=== PATIENT | female | born 1995 | race Caucasian/White ===

== ENCOUNTER 2017-01-23 09:42 | Inpatient (IN) | payer BC ==
[~2017-01-23] VITALS: Ht 154.9 cm; Wt 79.1 kg
[~2017-01-23 09:42] MED LIST: ACET500C5 PO; PREN1TAB49 PO
[2017-01-23 09:58] VITALS: BP 117/69; PULSE 102; RESP 18; Ht 154.9 cm; Wt 79.1 kg
--- NOTE | 2017-01-23 10:16 | TRIAGE ---
OB Triage Datetime Report Generated by CPN: 01/23/2017 10:16 Datetime: 01/23/2017 10:02 Vaginal Exam Dilatation (cms): 6.0 Effacement (%): 80 Station: -2 Exam By: [email or web address] Vaginal Bleeding: None Cervix, Consistency: Soft Cervix, Position: Midposition Presentation 'A': Cephalic Datetime: 01/23/2017 09:55 Assessment Type: Triage Maternal Assessment Level of Consciousness: Fully Conscious DTR's/Clonus: DTRs 2+; No Clonus Headache: Denies Blurred Vision: No Respiratory Effort: Unlabored; Regular Rhythm; Equal Expansion Breath Sounds, Left: Clear and Equal Breath Sounds, Right: Clear and Equal Nausea/Vomiting: Denies RUQ Epigastric Pain: Denies Lower Extremities Edema: None Degree: None Upper Extremities Edema: None Degree: None Facial Edema: None Fall Risk Assessment History of Falling: (0) No Secondary Diagnosis: (0) No Ambulatory Aid: (0) Bedrest/Nurse Assist IV Therapy: (0) No Gait: (0) Normal/Bedrest/Immobile Mental Status: (0) Oriented to Own Ability Fall Score: 0 Fall Risk Score Definition: No Risk: No action required Datetime: 01/23/2017 09:53 Time of Arrival: 01/23/2017 09:39 EGA: 40.3 Arrived By: Ambulatory Arrived From: Home Chief Complaint: C/O UC'S Movement: Present Contractions: Irregular Rupture of Membranes: Denies Vaginal Bleeding: None Vaginal Discharge: Present Recent Sexual Intercouse: Denies Abdominal Trauma: Not Applicable Patient Complaints: Contractions; Cramping; Back Pain Time Provider Notified: 01/23/2017 10:10 Provider Notified: SHARMIN Initial Plan: EFM, SVE Datetime: 01/23/2017 09:52 Labor Evaluation Monitor Mode: External Monitor Mode: External US Datetime: 01/09/2017 01:16 Membrane Status: Intact Datetime: 01/08/2017 23:30 Stage of : OB Triage Datetime: 01/08/2017 23:28 EGA: 38.2 Datetime: 01/08/2017 23:22 Heart Rate FHR Baseline Rate: 135 Monitor Mode: External US FHR Baseline Changes: No Baseline Change Variability: Moderate 6-25 bpm Accelerations: 15X15 Decelerations: None Category: Category I Datetime: 01/08/2017 23:18 Stage of : OB Triage Time of Arrival: 01/08/2017 22:40 Arrived By: Wheelchair Arrived From: Home Chief Complaint: VOIDING A LOT WANTS TO KNOW IF SHE IS LEAKING Movement: Present Rupture of Membranes: Unsure Vaginal Bleeding: None Recent Sexual Intercouse: Denies Time Provider Notified: 01/09/2017 00:43 Provider Notified: DR ALBERT Initial Plan: CALL MD EFM Maternal Assessment Level of Consciousness: Fully Conscious DTR's/Clonus: DTRs 2+; No Clonus Headache: Denies Blurred Vision: No Respiratory Effort: Unlabored; Regular Rhythm; Equal Expansion Breath Sounds, Left: Clear and Equal Breath Sounds, Right: Clear and Equal Nausea/Vomiting: Denies RUQ Epigastric Pain: Denies Lower Extremities Edema: None Degree: None Upper Extremities Edema: None Degree: None Facial Edema: None Temperature Route: Oral Fall Risk Assessment History of Falling: (0) No Secondary Diagnosis: (0) No Ambulatory Aid: (0) Bedrest/Nurse Assist IV Therapy: (0) No Gait: (0) Normal/Bedrest/Immobile Mental Status: (0) Oriented to Own Ability Fall Score: 0 Fall Risk Score Definition: No Risk: No action required Pain Assessment Pain Scale: 0 Datetime: 01/08/2017 23:17 Stage of : OB Triage Datetime: 01/08/2017 23:16 Stage of : OB Triage
--- NOTE | 2017-01-23 10:32 | RADRPT ---
PROCEDURE: US OB biophysical profile. CLINICAL INDICATION: decreased movements, PTL TECHNIQUE: Multiple sonographic images of the pelvis were obtained. The images were reviewed on a PACS workstation. COMPARISON: No prior studies are available for comparison. FINDINGS: There is a single viable intrauterine gestation. Cardiac activity is present with 132 beats per min alatna. There is a vertex presentation. The placenta is anterior. There is no evidence of placental abruption. There is a normal amount of amniotic fluid with an HAWA = 10.7 cm. Biophysical profile: movement 2/2 tone 2/2. breathing 2/2 HAWA 2/2 Total 01/15 RPTAT: AA . IMPRESSION: Normal biophysical profile. . .Jersey Mark MD, Date Time Electronically viewed and signed by .Jersey Mark MD, MD on 01/23/2017 10:31 .S/
--- NOTE | 2017-01-23 10:40 | RADRPT ---
PROCEDURE: US OB. CLINICAL INDICATION: labor, contractions TECHNIQUE: Multiple sonographic images of the pelvis were obtained. Transabdominal imaging only w as performed. The images were reviewed on a PACS workstation. COMPARISON: No prior studies are available for comparison. FINDINGS: Single intrauterine gestation. Cephalic presentation. heart rate is 146 bpm. Measurements were made in order to determine age. The results are as follows: BPD = 8.53 cm HC = 31.85 cm AC = 31.95 cm FL = 7.36 cm Gestational age is 36 weeks 0 days and ANSHUL is 02/20/2017 by ultrasound criteria. EFW = 2868 g +/- 430 g (10 %). The placenta is anterior. There is no evidence for an abruption or placenta previa. IMPRESSION: 1. Single live intrauterine gestation of approximately 36 weeks 0 days by ultrasound criteria. RPTAT: EE .Milton Elaine MD, MD Date Time Electronically viewed and signed by .Milton Elaine MD, on 01/23/2017 10:39 .R/
[2017-01-23] MEDS ORDERED: LACTATED RINGER'S 1,000 ML IV PRN (10:50)
[2017-01-23] MEDS ORDERED: LACTATED RINGER'S 1,000 ML IV SCH (10:50)
[2017-01-23] MEDS ORDERED: LIDOCAINE 1% (MPF) 30 ML INJ INJ PRN (11:00)
[2017-01-23] MEDS ORDERED: MISOPROSTOL 200 MCG TAB PR PRN (11:00)
[2017-01-23] MEDS ORDERED: CARBOPROST 250 MCG INJ IM PRN (11:00)
[2017-01-23] MEDS ORDERED: AMPICILLIN 2 GM/NS (PMX) 100 ML IV ONE (11:00)
[2017-01-23] MEDS ORDERED: IBUPROFEN 600 MG TAB PO PRN (11:00)
[2017-01-23] MEDS ORDERED: OXYTOCIN 30 UNITS/LR 500 ML IV SCH ×2 (11:00)
[2017-01-23] MEDS ORDERED: OXYTOCIN 30 UNITS/LR 500 ML IV PRN (11:00)
[2017-01-23] MEDS ORDERED: METHYLERGONOVINE 0.2 MG INJ IM PRN (11:00)
[2017-01-23 11:13] LABS: BARBITURATES Negative (NEGATIVE); BENZODIAZEPINES Negative (NEGATIVE); CANNABINOIDS Negative (NEGATIVE); COCAINE Negative (NEGATIVE); OPIATES Negative (NEGATIVE)
[2017-01-23 12:05] LABS: BASOPHILS % 0.3 % (0.0-2.0); EOSINOPHILS # 0.1 10^3/ul (0.0-0.5); EOSINOPHILS % 0.5 % (0.0-7.0); HEMATOCRIT 33.7 % (37.0-47.0); HEMOGLOBIN 11.5 g/dl (12.0-16.0); LYMPHOCYTES # 1.3 10^3/ul (0.8-2.9); LYMPHOCYTES % 11.6 % (15.0-51.0); MEAN CORPUSCULAR HEMOGLOBIN 29.5 pg (29.0-33.0); MEAN CORPUSCULAR HGB CONC 34.1 g/dl (32.0-37.0); MEAN CORPUSCULAR VOLUME 86.4 fl (82.0-101.0); MEAN PLATELET VOLUME 11.7 fl (7.4-10.4); MONOCYTE # 0.7 10^3/ul (0.3-0.9); MONOCYTES % 5.9 % (0.0-11.0); NEUTROPHILS % 81.4 % (39.0-77.0); PLATELET COUNT 278 10^3/UL (140-415); RED CELL DISTRIBUTION WIDTH 14.5 % (11.5-14.5); WHITE BLOOD COUNT 11.3 10^3/ul (4.8-10.8)
[2017-01-23] MEDS ORDERED: LACTATED RINGER'S 1,000 ML IV ONE (12:06)
[2017-01-23] MEDS ORDERED: ONDANSETRON 4 MG INJ ONE (12:09)
[2017-01-23] MEDS ORDERED: CITRIC ACID/NA CITRATE 30 ML CUP ONE ×2 (12:09→12:10)
[2017-01-23 12:18] LABS: INR 0.92; PARTIAL THROMBOPLASTIN TIME 25.4 Sec (25.0-35.0); PROTIME 12.4 Sec (12.2-14.2)
[2017-01-23] MEDS ORDERED: CITRIC ACID/NA CITRATE 30 ML CUP PO ONE (12:30)
[2017-01-23] MEDS ORDERED: morphine 4 MG/ML VIAL IV PRN (12:30)
[2017-01-23] MEDS ORDERED: NALBUPHINE HCL (10 MG/1 ML) INJ IV PRN (12:30)
[2017-01-23] MEDS ORDERED: TRIMETHOBENZAMIDE 100 MG/ML VIAL IM PRN (12:30)
[2017-01-23] MEDS ORDERED: ONDANSETRON 4 MG INJ IV ONE (12:30)
[2017-01-23] MEDS ORDERED: KETOROLAC 30 MG INJ IV PRN (12:30)
[2017-01-23] MEDS ORDERED: FENTAnyl 2MCG/ML-ROPIV 0.2% 100 ML BAG EPI SCH (12:30)
[2017-01-23] MEDS ORDERED: NALOXONE (0.4 MG/ML) INJ IV PRN (12:30)
[2017-01-23] MEDS ORDERED: morphine 2 MG INJ IV PRN (12:30)
[2017-01-23] MEDS ORDERED: DIPHENHYDRAMINE 50 MG INJ IV PRN (12:30)
[2017-01-23] MEDS ORDERED: ONDANSETRON 4 MG INJ IV PRN ×2 (12:30→18:00)
[2017-01-23] MEDS: BUTORPHANOL 2 MG INJ IV PRN ×2 (12:45→13:24)
--- NOTE | 2017-01-23 13:21 | LDN ---
Date/Time of Note Date/Time of Note DATE: 01/23/17 TIME: 13:14 Delivery Summary Normal spontaneous vaginal delivery of a baby from OA position compound presentation shoulders delivered without any difficulty rest of the baby's body followed cord clamp after stopped pulsing placenta spontaneous expulsion inspected complete peritoneal vaginal inspection no laceration estimated blood loss 250 mL Weeks of Gestation 40 weeks and 3 days Placenta Delivered: Spontaneously Meconium: none Episiotomy: No Laceration repair: None Anesthesia type: None Estimated blood loss: 250 Sponge & Needle done & correct: Yes All needle counts correct: Yes Any foreign bodies felt in the: No Problems: Infant Delivery Information Sex Infant Sex: male Apgars 1 Minute: 9 5 Minute: 9 Suctioning Nose & mouth suctioned at palma: Yes Delee suction performed: No Umbilical Cord Umbilical cord with: 3 Vessels Cord presentations: no nuchal cord Cord Blood was obtained: Yes HUSSAIN FINNEY MD Jan 23, 2017 13:21
--- NOTE | 2017-01-23 13:25 | HP ---
Date/Time of Note Date/Time of Note DATE: 01/23/17 TIME: 13:21 OB - History Hx of Present Free Text/Dictation 21 years old female G3 P 1 SAB 1 admitted to the [facility] in active labor pelvic examination on admission cervix 7 cm dilated 100 % effaced vertex at -1 station intact member. Chief Complaint: Labor contractions and Estimated Due Date: Jan 20, 2017 : 3 Para: 1 Spontaneous : 1 Care: Limited Care Ultrasounds: Normal mid trimester US Obstetrical Complications: None Medical Complications: None Past Family/Social History * Past Medical, Surgical, Family and Obstetric Histories reviewed from chart. Rubella: immune RPR/VDRL: Negative GBS Status: Negative HBsAG: Negative OB Admission Exam Vital Signs Vital Signs Vital Signs Date Time Temp Pulse Resp B/P Pulse Ox O2 Delivery O2 Flow Rate FiO2 01/23/17 09:58 98.3 102 18 117/69 97 Room Air Physical Exam HEENT: WNL Heart: Rhythm Normal Lungs: Clear, Equal Abdomen: WNL Extremities: Normal Reflexes: Normal Cervical Dilatation: 7cm Effacement: 100% Station: -1 Membranes: Intact Amniotic Fluid: Clear Heart Rate: 130's Accelerations: Accelerations Present Decelerations: No Decelerations Varibility: Moderate Contractions on Admission: < 5 Minutes Apart Intensity: Firm Last 72 hours Lab Results CBC & BMP 01/23/17 10:15 HUSSAIN FINNEY MD Jan 23, 2017 13:25
[2017-01-23] MEDS ORDERED: AMPICILLIN 1 GM/NS (PMX) 50 ML IV SCH (14:30)
[2017-01-23] MEDS ORDERED: HYDROCODONE/APAP (5/325) TAB PO PRN ×2 (18:00)
[2017-01-23] MEDS ORDERED: ACETAMINOPHEN 325 MG TAB PO PRN (18:00)
[2017-01-23] MEDS ORDERED: LANOLIN 7 GM TUBE TOP PRN (18:00)
[2017-01-23] MEDS ORDERED: DIBUCAINE 1% 30 GM OINT PR PRN (18:00)
[2017-01-23] MEDS ORDERED: OXYCODONE/ASPIRIN (4.88/325) TAB PO PRN ×2 (18:00)
[2017-01-23 18:05] VITALS: BP 108/58; PULSE 96; RESP 18
[2017-01-23] MEDS: OXYTOCIN 30 UNITS/LR 500 ML IV SCH ×2 (18:06→22:29)
[2017-01-23] MEDS: WITCH HAZEL/GLYCERIN PAD PR PRN ×2 (18:27→21:55)
[2017-01-23] MEDS: BENZOCAINE 20% 56 ML SPRAY TOP PRN ×2 (18:27→21:55)
[2017-01-23 20:00] VITALS: BP 127/68; PULSE 100; RESP 18
[2017-01-23] MEDS: SENNA/DOCUSATE NA (8.6MG/50MG) TAB PO SCH (20:59)
[2017-01-23 23:45] VITALS: BP 114/56; PULSE 95; RESP 18
[2017-01-23] MEDS: IBUPROFEN 600 MG TAB PO SCH (23:53)
[2017-01-24 04:15] VITALS: BP 111/58; PULSE 18; RESP 18
[2017-01-24] MEDS: IBUPROFEN 600 MG TAB PO SCH ×4 (05:38→23:49)
[2017-01-24 08:14] VITALS: BP 105/55; PULSE 77; RESP 18
[2017-01-24] MEDS: SENNA/DOCUSATE NA (8.6MG/50MG) TAB PO SCH ×2 (08:41→21:14)
[2017-01-24 09:06] LABS: BASOPHIL # 0.1 10^3/ul (0.0-0.1); BASOPHILS % 0.5 % (0.0-2.0); EOSINOPHILS # 0.1 10^3/ul (0.0-0.5); EOSINOPHILS % 0.7 % (0.0-7.0); HEMATOCRIT 30.6 % (37.0-47.0); LYMPHOCYTES # 1.7 10^3/ul (0.8-2.9); LYMPHOCYTES % 16.4 % (15.0-51.0); MEAN CORPUSCULAR HEMOGLOBIN 28.7 pg (29.0-33.0); MEAN CORPUSCULAR HGB CONC 32.7 g/dl (32.0-37.0); MEAN CORPUSCULAR VOLUME 87.9 fl (82.0-101.0); MEAN PLATELET VOLUME 11.5 fl (7.4-10.4); MONOCYTE # 0.7 10^3/ul (0.3-0.9); PLATELET COUNT 232 10^3/UL (140-415); RED BLOOD COUNT 3.48 10^6/ul (4.20-5.40); WHITE BLOOD COUNT 10.2 10^3/ul (4.8-10.8)
--- NOTE | 2017-01-24 09:59 | PN ---
Date/Time of Note Date/Time of Note DATE: 01/24/17 TIME: 09:57 OB Subjective Subjective Subjective January 24, 2017 day hospital visit Doing Well Afebrile Ambulatory Chest Clear Breasts are soft , Nipples are intact Abdomen is soft Fundus is firm Moderate amount of lochia Incision is clean ,No evidence of infection No calf tenderness No ankle edema Laboratory Tests Test 01/23/17 10:00 01/23/17 10:15 01/24/17 08:40 Urine Opiates Screen Negative Urine Barbiturates Negative Urine Amphetamines Screen Negative Urine Benzodiazepines Screen Negative Urine Cocaine Screen Negative Urine Cannabinoids Negative White Blood Count 11.310^3/ul 10.210^3/ul Red Blood Count 3.9010^6/ul 3.4810^6/ul Hemoglobin 11.5g/dl 10.0g/dl Hematocrit 33.7% 30.6% Mean Corpuscular Volume 86.4fl 87.9fl Mean Corpuscular Hemoglobin 29.5pg 28.7pg Mean Corpuscular Hemoglobin Concent 34.1g/dl 32.7g/dl Red Cell Distribution Width 14.5% 15.0% Platelet Count 35350^3/UL 32983^3/UL Mean Platelet Volume 11.7fl 11.5fl Neutrophils % 81.4% 75.0% Lymphocytes % 11.6% 16.4% Monocytes % 5.9% 7.0% Eosinophils % 0.5% 0.7% Basophils % 0.3% 0.5% Nucleated Red Blood Cells % 0.0/100WBC 0.0/100WBC Neutrophils # (Manual) 9.210^3/ul 810^3/ul Lymphocytes # 1.310^3/ul 1.710^3/ul Monocytes # 0.710^3/ul 0.710^3/ul Eosinophils # 0.110^3/ul 0.110^3/ul Basophils # 0.010^3/ul 0.110^3/ul Nucleated Red Blood Cells # 0.010^3/ul 0.010^3/ul Prothrombin Time 12.4Sec Prothrombin Time Ratio 1.0 INR International Normalized Ratio 0.92 Activated Partial Thromboplast Time 25.4Sec Rapid Plasma Reagin NONREACTIVE Current Medications Medications (Trade) Dose Ordered Sig/Shola Route PRN Reason Start Time Stop Time Status Last Admin Dose Admin Lactated Ringer's 1,000 ml @ 125 mls/hr Q8H IV 01/23/17 10:50 01/23/17 17:56 DC 01/23/17 11:05 Ampicillin 100 ml @ 100 mls/hr ONCE ONCE IV 01/23/17 11:00 01/23/17 11:59 DC 01/23/17 11:06 Ampicillin (Ampicillin 1 Gm/ NS (Pmx)) 50 ml @ 100 mls/hr Q4H IV 01/23/17 14:30 01/23/17 17:56 DC Butorphanol Tartrate (Stadol) 2 mg Q2H PRN IV PAIN 01/23/17 11:00 01/23/17 17:56 DC 01/23/17 12:45 Lidocaine 30 ml 30 ml ONCE PRN INJ EPISIOTOMY/TEARING 01/23/17 11:00 01/23/17 17:56 DC Oxytocin/Lactated Ringer's 500 ml @ 125 mls/hr ONCE -MAY REPEAT X1 IV 01/23/17 11:00 01/23/17 17:58 DC 01/23/17 13:22 Oxytocin/Lactated Ringer's 500 ml @ 125 mls/hr ONCE IV 01/23/17 11:00 01/23/17 17:58 DC 01/23/17 13:20 Ibuprofen 600 mg 600 mg ONCE PRN PO Mild Pain (Pain Score 1-3) 01/23/17 11:00 01/23/17 17:58 DC 01/23/17 13:28 Lactated Ringer's 1,000 ml @ 2,000 mls/hr Q30M PRN IV PRE-EPIDURAL BOLUS 01/23/17 10:50 01/23/17 17:58 DC Oxytocin/Lactated Ringer's 500 ml @ 0 mls/hr ONCE PRN IV For Hemorrhage Management 01/23/17 11:00 01/23/17 17:58 DC Methylergonovine Maleate (Methergine) 0.2 mg ONCE PRN IM VAGINAL BLEEDING 01/23/17 11:00 01/23/17 17:59 DC Carboprost Tromethamine (Hemabate) 250 mcg ONCE PRN IM VAGINAL BLEEDING 01/23/17 11:00 01/23/17 17:59 DC Misoprostol (Cytotec) 1,000 mcg ONCE PRN NE VAGINAL BLEEDING 01/23/17 11:00 01/23/17 17:56 DC Naloxone HCl (Narcan) 0.1 mg Q2M PRN IV FOR RESP RATE 8 OR LESS 01/23/17 12:30 01/23/17 17:56 DC Ketorolac Tromethamine (Toradol) 30 mg Q6H PRN IV PAIN 01/23/17 12:30 01/23/17 17:59 DC Morphine Sulfate (morphine) 2 mg Q3H PRN IV PAIN LEVEL 1-5 01/23/17 12:30 01/23/17 17:56 DC Morphine Sulfate (morphine) 4 mg Q3H PRN IV PAIN LEVEL 6-10 01/23/17 12:30 01/23/17 17:56 DC Diphenhydramine HCl (Benadryl) 25 mg Q6H PRN IV ITCHING 01/23/17 12:30 01/23/17 17:56 DC Nalbuphine HCl (Nubain) 5 mg ONCE PRN IV ITCHING 01/23/17 12:30 01/23/17 17:56 DC Ondansetron HCl (Zofran Inj) 4 mg Q6H PRN IV NAUSEA AND/OR VOMITING 01/23/17 12:30 01/23/17 17:56 DC Trimethobenzamide HCl (Tigan) 200 mg Q6H PRN IM NAUSEA AND/OR VOMITING 01/23/17 12:30 01/23/17 17:56 DC Fentanyl/ Ropivacaine 100 ml 100 ml EPIDURAL INFUSION EPI 01/23/17 12:30 01/23/17 17:56 DC Lactated Ringer's (Lr) 1,000 ml @ 1,000 mls/hr Q1H ONCE IV 01/23/17 12:06 01/23/17 13:05 DC Ondansetron HCl (Zofran Inj) 4 mg pre-procedure ONCE IV 01/23/17 12:30 01/23/17 12:31 DC 01/23/17 13:24 Citric Acid/ Sodium Citrate (Bicitra) 30 ml PRE-OP ONCE PO 01/23/17 12:30 01/23/17 12:31 DC 01/23/17 12:30 Citric Acid/ Sodium Citrate (Bicitra) 30 ml STK-MED ONCE .ROUTE 01/23/17 12:09 01/23/17 12:10 DC Ondansetron HCl (Zofran Inj) 4 mg STK-MED ONCE .ROUTE 01/23/17 12:09 01/23/17 12:10 DC Citric Acid/ Sodium Citrate 30 ml 30 ml STK-MED ONCE .ROUTE 01/23/17 12:10 01/23/17 12:11 DC Oxytocin/Lactated Ringer's 500 ml @ 125 mls/hr Q4H IV 01/23/17 17:51 01/24/17 01:50 DC 01/23/17 22:29 Ibuprofen (Motrin) 600 mg Q6 PO 01/24/17 00:00 01/24/17 05:38 Acetaminophen (Tylenol Tab) 650 mg Q4H PRN PO PAIN LEVEL 1-5 01/23/17 18:00 Acetaminophen/ Hydrocodone Bitart ([place] (5/325)) 1 tab Q4H PRN PO PAIN LEVEL 1-5 01/23/17 18:00 Acetaminophen/ Hydrocodone Bitart ([place] (5/325)) 2 tab Q4H PRN PO PAIN LEVEL 6-10 01/23/17 18:00 Oxycodone/Aspirin (Percodan) 1 tab Q3H PRN PO PAIN LEVEL 1-5 01/23/17 18:00 Oxycodone/Aspirin (Percodan) 2 tab Q3H PRN PO PAIN LEVEL 6-10 01/23/17 18:00 01/23/17 20:59 Ondansetron HCl (Zofran Inj) 4 mg Q6H PRN IV NAUSEA AND/OR VOMITING 01/23/17 18:00 Senna/Docusate Sodium (Senokot-S) 1 tab BID PO 01/23/17 21:00 01/24/17 08:41 Witch Miriam/ Glycerin (Tucks Pads) 1 pad BEDSIDE MEDICATION PRN NE HEMORRHOID/EPISIOTMY PAIN 01/23/17 18:00 01/23/17 21:55 Benzocaine (Dermoplast [place]) 1 spray BEDSIDE MEDICATION PRN TOP HEMORRHOID/EPISIOTMY PAIN 01/23/17 18:00 01/23/17 21:55 Dibucaine (Nupercainal) 1 applic BEDSIDE MEDICATION PRN NE HEMORRHOID/EPISIOTMY PAIN 01/23/17 18:00 Lanolin (Mpo-M-Fyslwp) 1 applic BEDSIDE MEDICATION PRN TOP BEDSIDE FOR YA TO NIPPLES 01/23/17 18:00 01/23/17 18:27 Measles/Mumps/ Rubella Vaccine Live (Mmr Ii Vaccine) 0.5 ml ONCE ONCE SC* 01/25/17 09:00 01/25/17 09:01 New born is doing well, Breast feeding MORA RODRIGUEZ MD Jan 24, 2017 09:59
[2017-01-24 16:00] VITALS: BP 105/57; PULSE 80; RESP 18
[2017-01-24 20:00] VITALS: BP 107/58; PULSE 150; RESP 18
[2017-01-25 04:00] VITALS: BP 113/55; PULSE 18; RESP 18
[2017-01-25] MEDS: IBUPROFEN 600 MG TAB PO SCH ×3 (05:55→18:01)
[2017-01-25 08:25] VITALS: BP 116/66; PULSE 80; RESP 17
[2017-01-25] MEDS ORDERED: MEASLES,MUMPS,RUBELLA VACCINE INJ SC* ONE (09:00)
--- NOTE | 2017-01-25 09:35 | DS ---
Date/Time of Note Date/Time of Note DATE: 01/25/17 TIME: 09:34 Discharge Summary Admission/Discharge Info Admit Date/Time Jan 23, 2017 at 10:33 Discharge Date/Time January 25, 2017 at 9:40 AM Discharge Diagnosis Day 2 post normal vaginal delivery Patient Condition: Good Procedures Normal vaginal delivery Hx of Present Illness Term admitted in labor Hospital Course Satisfactory recovery uneventful Home Meds Discontinued Reported Medications Vits W-Ca,Fe,Fa(<1MG) () 1 Tab Tablet, PO DAILY 05/28/11 Discontinued Scripts Acetaminophen* (Tylophen*) 500 Mg Capsule, 1 CAP PO Q6H Y for PAIN AND OR ELEVATED TEMP, #20 CAP Prov:AJZMIN MULLINS NP 05/30/16 Follow-up Plan instructions given recommended to make appointment in 2 weeks to be seen at the office for check Primary Care Provider Not On Staff Doctor Time spent on discharge: < 30 minutes Pending Labs Laboratory Tests Test 01/24/17 11:00 Hepatitis B Surface Antigen NEGATIVE (NEGATIVE) HUSSAIN FINNEY MD Jan 25, 2017 09:35
[2017-01-25] MEDS: SENNA/DOCUSATE NA (8.6MG/50MG) TAB PO SCH (10:42)
[2017-01-25 16:05] VITALS: BP 98/58; PULSE 85; RESP 18
== END 2017-01-25 18:36 | disposition home or self-care (01) | DRG 775 ==
LOC: OBT 09:42 → L-D 09:45 → OBT 10:31 → L-D 10:33 → PP1 18:00
PROVIDERS: ADMIT Obstetrics & Gynecology; ATTEND Obstetrics & Gynecology
PROC: 10E0XZZ Delivery of Products of Conception, External Approach (ICD-10-PCS; principal; 2017-01-23)
PROC: 3E033VJ Introduction of Other Hormone into Peripheral Vein, Percutaneous Approach (ICD-10-PCS; 2017-01-23)
DX: O48.0 Post-term pregnancy (principal); Z37.0 Single live birth; Z3A.40 40 weeks gestation of pregnancy
CPT/HCPCS: 76815; 76818; 80307; 85025; 85610; 85730; 86592; 86900; 86901; 87340; G0463; J0290; J0595; J2405; J2590; J3010; J7120